=== PATIENT | female | born 1960 | race Caucasian/White ===

== ENCOUNTER → 2022-02-18 | Outpatient (CLI) | payer OTHER | LOC: M WHC 08:40 | PROVIDERS: ATTEND Family Medicine | DX: Z12.31 Encounter for screening mammogram for malignant neoplasm of breast (principal) ==

== ENCOUNTER → 2022-12-03 | Outpatient (CLI) | payer OTHER ==
[~2022-12-03] MED LIST: CELE100C PO; VITMTA PO
== END ==
LOC: M RAD 14:31
PROVIDERS: ATTEND Nurse Practitioner Primary Care
DX: Z87.891 Personal history of nicotine dependence (principal)

== ENCOUNTER 2023-01-08 06:18 | Day surgery (SDC) | payer OTHER ==
[~2023-01-08] VITALS: Ht 162.6 cm; Wt 79.4 kg
[~2023-01-08 06:18] MED LIST changes: +LEVO25TA5 PO; +ROSU40TA4 PO; +VITA100093
[2023-01-08] MEDS ORDERED: LR 1,000 ML IV SCH (06:50)
[2023-01-08] MEDS ORDERED: GENTAMICIN SULF 80MG/2ML VIAL As Ordered ONE (07:18)
[2023-01-08] MEDS ORDERED: LIDOCAINE 2% MDV 20ML VIAL As Ordered ONE (07:18)
[2023-01-08] MEDS ORDERED: LIDOCAINE 2% 100MG/5ML SDV (FOR ANES.) As Ordered ONE (07:43)
[2023-01-08] MEDS ORDERED: KETOROLAC 60MG 2ML VIAL As Ordered ONE (07:43)
[2023-01-08] MEDS ORDERED: propofoL 200 MG/20 ML VIAL As Ordered ONE ×2 (07:43→07:47)
[2023-01-08] MEDS ORDERED: fentaNYL 100 MCG/2 ML INJECTION As Ordered ONE (07:43)
[2023-01-08] MEDS ORDERED: MIDAZOLAM INJ 2MG/2ML VIAL As Ordered ONE (07:44)
[2023-01-08] MEDS ORDERED: ceFAZolin SOD 2 GM in IV 1 EA IV ONE (08:00)
[2023-01-08] MEDS ORDERED: dexmedeTOMIDine (4MCG/ML)200MCG/50ML BTL (PRECEDEX) As Ordered ONE (09:19)
[2023-01-08 09:35] VITALS: BP 132/64; TEMP 99.1; O2SAT 100
== END 2023-01-08 10:40 | disposition home or self-care (01) ==
LOC: M SDC 06:18
PROVIDERS: ATTEND Podiatrist
DX: M20.11 Hallux valgus (acquired), right foot (principal); E03.9 Hypothyroidism, unspecified; F17.210 Nicotine dependence, cigarettes, uncomplicated; Z79.899 Other long term (current) drug therapy; Z79.890 Hormone replacement therapy
CPT/HCPCS: 28299; 73630; 88300; C1713; J0665; J0690; J1100; J1580; J1885; J2250; J3010

== ENCOUNTER → 2023-02-12 | Outpatient (CLI) | payer OTHER | LOC: M PAIN 13:00 | PROVIDERS: ATTEND Nurse Practitioner Family | DX: M54.50 Low back pain, unspecified (principal); G89.29 Other chronic pain; F17.210 Nicotine dependence, cigarettes, uncomplicated; Z79.899 Other long term (current) drug therapy ==

== ENCOUNTER 2023-02-26 09:09 | Day surgery (SDC) | payer OTHER ==
[~2023-02-26] VITALS: Ht 162.6 cm; Wt 81.3 kg
[~2023-02-26 09:09] MED LIST changes: +NS 1,000 ML IV ONE
[2023-02-26] MEDS ORDERED: propofoL 200 MG/20 ML VIAL As Ordered ONE (10:15)
[2023-02-26 10:34] VITALS: TEMP 98.2
[2023-02-26 10:53] VITALS: BP 115/56; O2SAT 98
== END 2023-02-26 11:03 | disposition home or self-care (01) ==
LOC: M OPP 09:09
PROVIDERS: ATTEND Internal Medicine Gastroenterology
DX: K57.30 Diverticulosis of large intestine without perforation or abscess without bleeding (principal); D12.5 Benign neoplasm of sigmoid colon; K64.8 Other hemorrhoids; F17.210 Nicotine dependence, cigarettes, uncomplicated; Z79.899 Other long term (current) drug therapy

== ENCOUNTER → 2024-03-03 | Outpatient (CLI) | payer OTHER ==
[~2024-03-03] MED LIST changes: -NS 1,000 ML IV ONE; -ROSU40TA4 PO; +ROSU40TA81 PO
== END ==
LOC: M RAD 13:23
PROVIDERS: ATTEND Nurse Practitioner Primary Care
DX: Z12.2 Encounter for screening for malignant neoplasm of respiratory organs (principal); R91.8 Other nonspecific abnormal finding of lung field; Z87.891 Personal history of nicotine dependence

== ENCOUNTER → 2025-02-01 | Outpatient (CLI) | payer OTHER ==
[~2025-02-01] MED LIST changes: +MULTTAB61 PO
[2025-02-01 12:16] LABS: BASO # 0.0 10^3/uL (0.0-0.2); BASO % 0.8 % (0.0-1.0); EOS # 0.1 10^3/uL (0.0-0.5); EOS % 1.0 % (0.0-3.0); LYMPH # 1.6 10^3/uL (1.5-5.0); LYMPH % 32.5 % (24.0-44.0); MONO # 0.3 10^3/uL (0.0-0.8); MONO % 5.7 % (2.0-8.0); NEUTROPHILS # 2.9 10^3/uL (1.5-8.5); NEUTROPHILS % 59.8 % (36.0-66.0); PLATELET COUNT, AUTOMATED 234 10^3/uL (150-450)
[2025-02-01 12:39] LABS: CALCIUM LEVEL 8.3 MG/DL (8.3-10.6); CARBON DIOXIDE LEVEL 25.0 MMOL/L (20-31); CHLORIDE LEVEL 105.0 MMOL/L (98-107); CREATININE FOR GFR 0.77 MG/DL (0.55-1.30); GLOMERULAR FILTRATION RATE 87.2 (>45); POTASSIUM SERUM 4.1 MMOL/L (3.5-5.1); SODIUM LEVEL 139.0 MMOL/L (136-145)
== END ==
LOC: M RAD 10:52
PROVIDERS: ATTEND Podiatrist
DX: M20.12 Hallux valgus (acquired), left foot (principal); M79.672 Pain in left foot; R00.1 Bradycardia, unspecified; I44.7 Left bundle-branch block, unspecified; I45.19 Other right bundle-branch block

== ENCOUNTER 2025-02-16 07:13 | Day surgery (SDC) | payer OTHER ==
[~2025-02-16] VITALS: Ht 162.6 cm; Wt 73.4 kg
[2025-02-16] MEDS ORDERED: MIDAZOLAM INJ 2 MG/2 ML VIAL As Ordered ONE (08:00)
[2025-02-16] MEDS ORDERED: ACETAMINOPHEN 1000MG/100ML IV BAG As Ordered ONE (08:01)
[2025-02-16] MEDS ORDERED: ONDANSETRON 4MG/2ML VIAL As Ordered ONE (08:01)
[2025-02-16] MEDS ORDERED: KETOROLAC 30 MG/ML 1 ML VIAL As Ordered ONE (08:01)
[2025-02-16] MEDS: LR 1,000 ML IV SCH (08:15)
[2025-02-16] MEDS ORDERED: LIDOCAINE 2% 100 MG/5 ML SDV (FOR ANES.) As Ordered ONE (08:18)
[2025-02-16] MEDS: ceFAZolin SOD 2 GM IV ONCE IV ONE (09:55)
[2025-02-16] MEDS: LIDOCAINE 2% MDV 20 ML VIAL As Ordered ONE (09:58)
[2025-02-16] MEDS: ROPIvacaine 0.5% 30ML VIAL As Ordered ONE (09:58)
[2025-02-16] MEDS: GENTAMICIN SULF 80 MG/2 ML VIAL As Ordered ONE (10:16)
[2025-02-16] MEDS ORDERED: PHENYLephrine 500MCG 5ML (100MCG/ML) SYRINGE As Ordered ONE (10:20)
[2025-02-16] MEDS: dexAMETHasone 4 MG/ML 1 ML VIAL As Ordered ONE (10:36)
[2025-02-16 12:02] VITALS: BP 140/80; TEMP 97.7; O2SAT 99
== END 2025-02-16 12:04 | disposition home or self-care (01) ==
LOC: M SDC 07:13
PROVIDERS: ATTEND Podiatrist
DX: M20.12 Hallux valgus (acquired), left foot (principal); Z96.653 Presence of artificial knee joint, bilateral; F17.210 Nicotine dependence, cigarettes, uncomplicated
CPT/HCPCS: 28296; 73630; 76000; 88300; C1713; J0131; J0665; J0688; J1100; J1580; J1885; J2250; J2371; J2405; J3010